=== PATIENT | male | born 1955 | race Caucasian/White ===

== ENCOUNTER 2023-05-13 10:13 | Outpatient (AMB) | payer MEDICARE, SELFPAY ==
--- NOTE | 2023-05-13 10:21 | HO.NEPHOV_ITS ---
HPI HPI Comments History of Present Illness Details I had the pleasure of seeing Phil in consultation proteinuria. He is hypertensive for many years and has been on losartan. His proteinuria had been fluctuant and persistent. He has history of inflammatory bowel disease and take mesalamine. His renal functions have been normal. He is not a diabetic. He does not take any nonsteroidal anti-inflammatories. He denies any joint pain, photosensitivity, epistaxis, hematuria or edema. He denies any new bone or back pain. He never had elevated serum calcium. Is no family history of any proteinuria. He has no sore throat, cough but has been having shingles for couple of weeks. He continues to have neuropathic pain at the shingles site. [facility] Medical History (Updated 05/13/23 @ 11:03 by Luis Fernando Carranza MD) Ulcerative colitis Proteinuria OA (osteoarthritis) of knee Normochromic normocytic anemia Microalbuminuria Hypothyroidism Hypertension Hyperlipidemia History of pulmonary embolus (PE) Gout Coronary arteriosclerosis Ascending aortic aneurysm Allergic rhinitis Surgical History H/O wrist surgery History of arthroscopic knee surgery Social History (Updated 05/13/23 @ 10:25 by Simi Treviño MA) Alcohol intake: never Patient Tobacco Use Status: Former Tobacco user Use of substances other than those prescribed or required for medical reasons: No Vital Signs 05/13/23 10:22 Height 5 ft 11 in Weight 238 lb BMI 33.2 BP 140/80 H Blood Pressure Location Lt brachial Position Sitting Pulse 75 Pulse Source Pulse Oximeter Pulse Oximetry (%) 97 Oxygen Delivery Method Room Air Physical Exam Vital Signs: Last Vital Signs Pulse 75 05/13/23 10:22 BP 140/80 H 05/13/23 10:22 Pulse Ox 97 05/13/23 10:22 Oxygen Delivery Method Room Air 05/13/23 10:22 BMI result Body Mass Index 33.2 Const General: comfortable and no acute distress Orientation/consciousness: patient oriented x3 HEENT Head: Yes normocephalic Mouth: Normal oral and palatal mucosa present Eyes EOM: EOMs intact bilaterally Neck Neck: Yes supple Resp Auscultation: clear to auscultation bilaterally Cardio Jugular venous distension: no JVD Rate: regular rate GI Palpation (GI): Soft to palpation Auscultation: normal bowel sounds General: Yes no CVA tenderness Back/Spine/Pelvis Back: no CVA tenderness Neuro General: patient oriented x3 and moves all extremities Extrem General: Yes no pedal edema Assessment & Plan Assessment & Plan (1) Proteinuria: Code(s): R80.9 - Proteinuria, unspecified Qualifiers: Proteinuria type: other Qualified Code(s): R80.8 - Other proteinuria (2) Hypertension: Code(s): I10 - Essential (primary) hypertension Qualifiers: Hypertension type: primary hypertension Qualified Code(s): I10 - Essential (primary) hypertension (3) Shingles: Code(s): B02.9 - Zoster without complications Qualifiers: Herpes zoster complications: with nervous system involvement Herpes zoster neurologic complication detail: other postherpetic nervous system involvement Qualified Code(s): B02.29 - Other postherpetic nervous system involvement Plan Phil has hypertension for long time. He is on losartan. His blood pressure typically he is well controlled. He has gained some weight. He has been having proteinuria for a while, which has been fluctuating. Differential diagnosis for the proteinuria is quite broad at this moment. He is having a lot of neuropathic pain at the site of shingles. I prescribed him gabapentin for 10 days until he is going to be seen by his primary care physician. He has already been seen in an Urgent Clinic in [place]. I ordered workup for his proteinuria including renal ultrasound and 24 hour urine collection for protein quantification. I plan to increase his losartan at the next visit. He may need a renal biopsy. All these have been discussed in detail and I answered all his questions. Follow-up given. Orders: Orders Protein, 24 Hr Urine Group Today I10 - Essential (primary) hypertension, R80.9 - Proteinuria, unspecified Myeloperoxidase Antibody Today I10 - Essential (primary) hypertension, R80.9 - Proteinuria, unspecified Anti Glomerular Basement Memb Today I10 - Essential (primary) hypertension, R80.9 - Proteinuria, unspecified Complement C4 Today I10 - Essential (primary) hypertension, R80.9 - Proteinuria, unspecified US renal BI Today I10 - Essential (primary) hypertension, R80.9 - Proteinuria, unspecified Complement C3 Today I10 - Essential (primary) hypertension, R80.9 - Proteinuria, unspecified Anti DNA DS Antibody Today I10 - Essential (primary) hypertension, R80.9 - Proteinuria, unspecified Neutrophil Cytoplasma Ab Today I10 - Essential (primary) hypertension, R80.9 - Proteinuria, unspecified Proteinase 3 PR3 Antibodies Today I10 - Essential (primary) hypertension, R80.9 - Proteinuria, unspecified Immunofixation Pnl, Serum Today I10 - Essential (primary) hypertension, R80.9 - Proteinuria, unspecified Phospholipase A2 Receptor Pnl Today I10 - Essential (primary) hypertension, R80.9 - Proteinuria, unspecified Medications: New gabapentin 100 mg PO TID 10 days 30 caps 0RF Coding Level of Care Code New Pt Level 4 (06596) Diagnoses Other proteinuria R80.8 Proteinuria type: other Primary hypertension I10 Hypertension type: primary hypertension Other postherpetic nervous system involvement B02.29 Herpes zoster complications: with nervous system involvement Herpes zoster neurologic complication detail: other postherpetic nervous system involvement Results Reviewed Nephrology Results: No Data to Display
[2023-05-13 10:22] VITALS: BP 140/80; PULSE 75; O2SAT 97; BMI 33.2
== END 2023-05-13 11:38 | disposition home or self-care (01) ==
PROVIDERS: PCP Family Medicine; Visit Provider Internal Medicine Nephrology
DX: R80.8 Other proteinuria (principal); I10 Essential (primary) hypertension; B02.29 Other postherpetic nervous system involvement
CPT/HCPCS: 99204

== ENCOUNTER → 2023-05-13 10:13 | Outpatient (BNVA) | payer MEDICARE, SELFPAY | PROVIDERS: PCP Family Medicine; Visit Provider Internal Medicine Nephrology | DX: R80.8 Other proteinuria (principal); I10 Essential (primary) hypertension; B02.29 Other postherpetic nervous system involvement | CPT/HCPCS: 99202 ==

== ENCOUNTER 2023-06-07 12:21 | Outpatient (REF) | payer MEDICARE, SELFPAY ==
--- NOTE | ~2023-06-07 | US_ITS ---
EXAMINATION: US RETROPERITONEAL LIMITED (RENAL ONLY) CLINICAL INFORMATION: Proteinuria, unspecified. COMPARISON: None available. TECHNIQUE: Real-time imaging of the kidneys. FINDINGS: RIGHT KIDNEY: 13.7 x 5.8 x 6.3 cm (SAG x AP x TRV). The kidney is normal in size, contour, and echogenicity. Renal cortical thickness is normal. No renal calculi or hydronephrosis. There are multiple simple cysts, the largest include an exophytic in the upper pole measuring 2.7 x 2.4 x 3.1 cm and a mid renal cyst measuring 4.3 x 3.0 x 4.0 cm. No imaging follow-up is recommended. LEFT KIDNEY: 13.2 x 6 x 5.9 cm (SAG x AP x TRV). The kidney is normal in size, contour, and echogenicity. Renal cortical thickness is normal. No renal calculi or hydronephrosis. There are multiple simple cysts, the largest is an exophytic cyst in the lower pole measuring 2.9 x 2.8 x 2.6 cm. No imaging follow-up is recommended. US/US renal BI IMPRESSION: Bilateral simple cysts. No imaging follow-up is recommended.
== END 2023-06-07 12:22 | disposition home or self-care (01) ==
LOC: HO.US 12:21
PROVIDERS: PCP Family Medicine; Visit Provider Internal Medicine Nephrology
DX: R80.9 Proteinuria, unspecified (principal); I10 Essential (primary) hypertension
CPT/HCPCS: 76775

== ENCOUNTER 2023-08-26 11:02 | Outpatient (REF) | payer MEDICARE, SELFPAY ==
[2023-08-27 13:53] LABS: Complement C3 137 mg/dL (82-185)
[2023-08-31 10:44] LABS: Neutrophil Cyto Ab Screen NEGATIVE (NEGATIVE)
[2023-08-31 17:18] LABS: IgA 187 mg/dL (70-320); IgG 1441 mg/dL (600-1540); IgM 46 mg/dL (50-300)
[2023-09-02 07:38] LABS: Anti DNA DS Antibody <1 IU/mL; Anti Glomerular Basement Memb <1.0 AI; Myeloperoxidase Antibody <1.0 AI; Proteinase 3 PR3 Antibodies <1.0 AI
[2023-09-05 01:43] LABS: Phospholipase A2 IgG ELISA <4 RU/mL; Phospholipase A2 IgG IFA NEGATIVE (NEGATIVE)
== END 2023-08-26 11:03 | disposition home or self-care (01) ==
LOC: HO.HKASLDS 11:02
PROVIDERS: PCP Family Medicine; Visit Provider Internal Medicine Nephrology
DX: R80.9 Proteinuria, unspecified (principal); I10 Essential (primary) hypertension
CPT/HCPCS: 36415; 82784; 83520; 86021; 86036; 86160; 86225; 86255; 86334; 99212

== ENCOUNTER 2023-08-26 11:02 | Outpatient (AMB) | payer MEDICARE, SELFPAY ==
--- NOTE | 2023-08-26 11:19 | HO.NEPHOV_ITS ---
Vital Signs 08/26/23 11:20 Height 5 ft 11 in Weight 234 lb BMI 32.6 BP 122/80 Blood Pressure Location Lt brachial Position Sitting Pulse 65 Pulse Source Pulse Oximeter Pulse Oximetry (%) 97 Oxygen Delivery Method Room Air Intake Visit Reasons: 3M follow up/ Confirmed Credit Card Specialist Required: No Accompanied by: Self / Same As Patient Allergies Penicillins Allergy (Verified 08/26/23 11:21) Unknown HPI Comments Details: I had the pleasure of seeing Phil in follow up for proteinuria. He is hypertensive for many years and has been on losartan. His proteinuria had been fluctuant and persistent. He has history of inflammatory bowel disease and take mesalamine. His renal functions have been normal. He is not a diabetic. He does not take any nonsteroidal anti-inflammatories. He denies any joint pain, photosensitivity, epistaxis, hematuria or edema. He denies any new bone or back pain. He never had elevated serum calcium. Has no family history of any proteinuria. He continues to have neuropathic pain at the shingles site REPLACED BY [facility] Medical History (Updated 08/26/23 @ 11:47 by Luis Fernando Carranza MD) Ulcerative colitis Proteinuria OA (osteoarthritis) of knee Normochromic normocytic anemia Microalbuminuria Hypothyroidism Hypertension Hyperlipidemia History of pulmonary embolus (PE) Gout Coronary arteriosclerosis Ascending aortic aneurysm Allergic rhinitis Surgical History H/O wrist surgery History of arthroscopic knee surgery Social History Alcohol intake: never Patient Tobacco Use Status: Former Tobacco user Physical Exam Vital Signs: Last Vital Signs Pulse 65 08/26/23 11:20 BP 122/80 08/26/23 11:20 Pulse Ox 97 08/26/23 11:20 Oxygen Delivery Method Room Air 08/26/23 11:20 BMI result Body Mass Index 32.6 Const General: comfortable and no acute distress Orientation/consciousness: patient oriented x3 HEENT Head: Yes normocephalic Mouth: Normal oral and palatal mucosa present Eyes EOM: EOMs intact bilaterally Neck Neck: Yes supple Resp Auscultation: clear to auscultation bilaterally Cardio Jugular venous distension: no JVD Rate: regular rate GI Palpation (GI): Soft to palpation Auscultation: normal bowel sounds General: Yes no CVA tenderness Back/Spine/Pelvis Back: no CVA tenderness Skin General skin exam: no rashes or lesions noted Neuro General: patient oriented x3 and moves all extremities Extrem General: Yes no pedal edema Results Reviewed Nephrology Results: Renal US 06/07/23 Assessment & Plan Assessment & Plan (1) Proteinuria: Code(s): R80.9 - Proteinuria, unspecified Category: Medical Qualifiers: Proteinuria type: other Qualified Code(s): R80.8 - Other proteinuria Plan Phil has hypertension for long time. He is on losartan. His blood pressure is well controlled. He has gained some weight. He has been having proteinuria for a while, which has been fluctuating. Differential diagnosis for the proteinuria is quite broad at this moment. His renal ultrasound showed cyst B/L. I plan to do a F/U imaging next year. I ordered 24 hour urine collection for protein quantification. I plan to increase his losartan with time if needed. He may need a renal biopsy. All these have been discussed in detail and I answered all his questions. Follow-up given. Orders: Orders Protein, 24 Hr Urine Group Today R80.8 - Other proteinuria Medications: Discontinued gabapentin Discontinued Reason: Doctor's Order 100 mg PO TID 10 days 30 caps 0RF Coding Level of Care Code Est Pt Level 4 (39424) Diagnoses Other proteinuria R80.8 Proteinuria type: other
[2023-08-26 11:20] VITALS: BP 122/80; PULSE 65; O2SAT 97; BMI 32.6
== END 2023-08-26 11:53 | disposition home or self-care (01) ==
PROVIDERS: PCP Family Medicine; Visit Provider Internal Medicine Nephrology
DX: R80.8 Other proteinuria (principal)
CPT/HCPCS: 99214